=== PATIENT | male | born 1995 ===

== ENCOUNTER 2017-08-14 21:48 | Emergency (ER) | payer SELFPAY ==
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
--- NOTE | 2017-08-15 00:29 | CT ---
EXAM: CT Head Without Intravenous Contrast EXAM DATE/TIME: 08/14/2017 11:28 PM CLINICAL HISTORY: 22 years old, male; Pain; Headache; Headache not specified TECHNIQUE: Axial computed tomography images of the head/brain without intravenous contrast. All CT scans at this facility use one or more dose reduction techniques, viz.: automated exposure control; ma/kV adjustment per patient size (including targeted exams where dose is matched to indication; i.e. head); or iterative reconstruction technique. Coronal and sagittal reformatted images were created and reviewed. COMPARISON: No relevant prior studies available. FINDINGS: No intracranial hemorrhage. No intracranial edema. No evidence of infarct. There is near-complete opacification of the ethmoid sinuses and right sphenoid sinus. It could be chronic or alternatively represent acute sinusitis. Clinical correlation is recommended. IMPRESSION: Sinus disease.
[2017-08-15 02:49] VITALS: BP 122/65; PULSE 76; RESP 16; TEMP 98.1; O2SAT 98
== END 2017-08-15 02:51 | disposition home or self-care (01) ==
LOC: H.ER 21:48
DX: J32.9 Chronic sinusitis, unspecified (principal); F17.210 Nicotine dependence, cigarettes, uncomplicated; S09.90XA Unspecified injury of head, initial encounter
CPT/HCPCS: 70450; 96372; 99284; J1885; J2765